=== PATIENT | female | born 1975 | race Caucasian/White ===

== ENCOUNTER → 2018-02-28 | Outpatient (REF) | payer BC | LOC: M SFHCLERA 18:42 | DX: R50.9 Fever, unspecified (principal) ==

== ENCOUNTER → 2020-01-14 | Outpatient (REF) | LOC: M LAB 12:34 | PROVIDERS: ATTEND Nurse Practitioner Adult Health | DX: Z00.00 Encounter for general adult medical examination without abnormal findings (principal) ==

== ENCOUNTER → 2021-02-13 | Outpatient (REF) | LOC: M LABSMTC 11:21 | PROVIDERS: ATTEND Pediatrics | DX: Z11.52 Encounter for screening for COVID-19 (principal) ==

== ENCOUNTER → 2021-02-16 | Outpatient (REF) | LOC: M LABSMTC 12:17 | PROVIDERS: ATTEND Pediatrics | DX: Z11.52 Encounter for screening for COVID-19 (principal) ==

== ENCOUNTER 2021-09-15 11:21 | Emergency (ER) | payer OTHER, BC ==
[~2021-09-15] VITALS: Ht 170.2 cm; Wt 56.8 kg
[2021-09-15 14:01] LABS: BASO # 0.1 10^3/uL (0.0-0.2); BASO % 0.5 % (0.0-1.0); EOS # 0.1 10^3/uL (0.0-0.5); EOS % 0.9 % (0.0-3.0); HEMATOCRIT 44.5 % (36.0-47.0); LYMPH % 23.8 % (24.0-44.0); MEAN CORPUSCULAR HEMOGLOBIN 31.6 pg (27.0-33.0); MEAN CORPUSCULAR HGB CONC 33.7 g/dl (32.0-36.5); MEAN CORPUSCULAR VOLUME 93.9 fl (80.0-96.0); MONO # 0.7 10^3/uL (0.0-0.8); MONO % 5.4 % (2.0-8.0); NEUTROPHILS # 8.8 10^3/uL (1.5-8.5); NEUTROPHILS % 69.2 % (36.0-66.0); PLATELET COUNT, AUTOMATED 194 10^3/uL (150-450); RED BLOOD COUNT 4.74 10^6/uL (4.00-5.40); WHITE BLOOD COUNT 12.6 10^3/uL (4.0-10.0)
[2021-09-15] MEDS ORDERED: BOOSTRIX/ADACEL VACCINE (DIPHTH/PERTUSS/ACELL/TETANUS) 0.5ML SYR IM ONE (14:15)
[2021-09-15 14:37] LABS: BLOOD UREA NITROGEN 11 MG/DL (7-18); CARBON DIOXIDE LEVEL 28 MEQ/L (21-32); CHLORIDE LEVEL 106 MEQ/L (98-107); CREATININE FOR GFR 0.77 MG/DL (0.55-1.30); GLOMERULAR FILTRATION RATE > 60.0 (>58); GLUCOSE, FASTING 87 MG/DL (70-100); POTASSIUM SERUM 4.4 MEQ/L (3.5-5.1); SODIUM LEVEL 139 MEQ/L (136-145)
[2021-09-15 14:38] LABS: ALT/SGPT 28 U/L (12-78); BILIRUBIN,TOTAL 0.6 MG/DL (0.2-1.0); CALCIUM LEVEL 9.4 MG/DL (8.5-10.1); TOTAL PROTEIN 7.6 GM/DL (6.4-8.2)
[2021-09-15 14:41] LABS: HEPATITIS B SURFACE ANTIBODY POSITIVE (POSITIVE)
--- OUTSIDE RECORDS SUMMARY | 2021-09-15 14:50 | CCD ---
Author Author [facility] Organization [facility] Address Unknown Phone Unavailable Care Team Providers Care Cycle Consultant Name Role Phone Jeniffer HINES MD Unavailable Unavailable MARAVEGIASJeniffer MD Unavailable Unavailable MARAVEGIASJeniffer MD Unavailable Unavailable MARAVEGIASJeniffer MD Unavailable Unavailable MARAVEGIASJeniffer MD Unavailable Unavailable MARAVEGIASJeniffer MD Unavailable Unavailable MARAVEGIASJeinffer MD Unavailable Unavailable MARAVEGIASJeniffer MD Unavailable Unavailable MARAVEGIASJeniffer MD Unavailable Unavailable MARAVEGIASJeniffer MD Unavailable Unavailable MARAVEGIASJeniffer MD Unavailable Unavailable MARAVEGIASJeniffer MD Unavailable Unavailable MARAVEGIASJeniffer MD Unavailable Unavailable MARAVEGIASJeniffer MD Unavailable Unavailable EllyJose MD Unavailable Unavailab le EllyJose MD Unavailable Unavailab le EllyJose MD Unavailable Unavailab le EllyJose MD Unavailable Unavailab le EllyJose MD Unavailable Unavailab le EllyJose MD Unavailable Unavailab le EllyJose MD Unavailable Unavailab le Elly, Jose Fermin MD Unavailable Unavailab le Elly, Jose Fermin MD Unavailable Unavailab le Elly, Jose Fermin MD Unavailable Unavailab le Elly, Jose Fermin MD Unavailable Unavailab le Elly, Jose Fermin MD Unavailable Unavailab le Elly, Jose Fermin MD Unavailable Unavailab le Elly, Jose Fermin MD Unavailable Unavailab le Elly, Jose Fermin MD Unavailable Unavailab le Elly, Jose Fermin MD Unavailable Unavailab le Elly, Jose Fermin MD Unavailable Unavailab le Elly, Jose Fermin MD Unavailable Unavailab le Elly, Jose Fermin MD Unavailable Unavailab le Elly, Jose Fermin MD Unavailable Unavailab le Elly, Jose Fermin MD Unavailable Unavailab le Elly, Jose Fermin MD Unavailable Unavailab le Elly, Jose Fermin MD Unavailable Unavailab le Elly, Jose Fermin MD Unavailable Unavailab le Elly, Jose Fermin MD Unavailable Unavailab le Elly, Jose Fermin MD Unavailable Unavailab le Elly, Jose Fermin MD Unavailable Unavailab le Elly, Jose Fermin MD Unavailable Unavailab le Elly, Jose Fermin MD Unavailable Unavailab le Elly, Jose Fermin MD Unavailable Unavailab le Elly, Jose Fermin MD Unavailable Unavailab le Elly, Jose Fermin MD Unavailable Unavailab le Elly, Jose Fermin MD Unavailable Unavailab le Elly, Jose Fermin MD Unavailable Unavailab le Elly, Jose Fermin MD Unavailable Unavailab le Elly, Jose Fermin MD Unavailable Unavailab le Elly, Jose Fermin MD Unavailable Unavailab le Elly, Jose Fermin MD Unavailable Unavailab le Elly, Jose Fermin MD Unavailable Unavailab le Elly, Jose Fermin MD Unavailable Unavailab le Elly, Jose Fermin MD Unavailable Unavailab le Elly, Jose Fermin MD Unavailable Unavailab le Elly, Jose Fermin MD Unavailable Unavailab le Elly, Jose Fermin MD Unavailable Unavailab le Elly, Jose Fermin MD Unavailable Unavailab le Elly, Jose Fermin MD Unavailable Unavailab le Elly, Jose Fermin MD Unavailable Unavailab le Elly, Jose Fermin MD Unavailable Unavailab le Elly, Jose Fermin MD Unavailable Unavailab le Elly, Jose Fermin MD Unavailable Unavailab le Elly, Jose Fermin MD Unavailable Unavailab le Elly, Jose Fermin MD Unavailable Unavailab le Elly, Jose Fermin MD Unavailable Unavailab le Elly, Jose Fermin MD Unavailable Unavailab le Elly, Jose Fermin MD Unavailable Unavailab le Elly, Jose Fermin MD Unavailable Unavailab le Elly, Jose Fermin MD Unavailable Unavailab le Elly, Jose Fermin MD Unavailable Unavailab le Elly, Jose Fermin MD Unavailable Unavailab le Elly, Jose Fermin MD Unavailable Unavailab le Elly, Jose Fermin MD Unavailable Unavailab le Elly, Jose Fermin MD Unavailable Unavailab le Elly, Jose Fermin MD Unavailable Unavailab le Elly, Jose Fermin MD Unavailable Unavailab le Elly, Jose Fermin MD Unavailable Unavailab le Elly, Jose Fermin MD Unavailable Unavailab le Elly, Jose Fermin MD Unavailable Unavailab le Elly, Jose Fermin MD Unavailable Unavailab le Elly, Jose Fermin MD Unavailable Unavailab le Elly, Jose Fermin MD Unavailable Unavailab le Elly, Jose Fermin MD Unavailable Unavailab le Elly, Jose Fermin MD Unavailable Unavailab le Elly, Jose Fermin MD Unavailable Unavailab le Elly, Jose Fermin MD Unavailable Unavailab le Elly, Jose Fermin MD Unavailable Unavailab le Elly, Jose Fermin MD Unavailable Unavailab le Elly, Jose Fermin MD Unavailable Unavailab le Elly, Jose Fermin MD Unavailable Unavailab le Elly, Jose Fermin MD Unavailable Unavailab le Elly, Jose Fermin MD Unavailable Unavailab le Elly, Jose Fermin MD Unavailable Unavailab le Elly, Jose Fermin MD Unavailable Unavailab le Elly, Jose Fermin MD Unavailable Unavailab le Elly, Jose Fermin MD Unavailable Unavailab le Elly, Jose Fermin MD Unavailable Unavailab le Elly, Jose Fermin MD Unavailable Unavailab le Elly, Jose Fermin MD Unavailable Unavailab le Elly, Jose Fermin MD Unavailable Unavailab le Elly, Jose Fermin MD Unavailable Unavailab le Elly, Jose Fermin MD Unavailable Unavailab le Elly, Jose Fermin MD Unavailable Unavailab le Elly, Jose Fermin MD Unavailable Unavailab le Elly, Jose Fermin MD Unavailable Unavailab le Elly, Jose Fermin MD Unavailable Unavailab le Elly, Jose Fermin MD Unavailable Unavailab le Elly, Jose Fermin MD Unavailable Unavailab le Elly, Jose Fermin MD Unavailable Unavailab le Elly, Joes Fermin MD Unavailable Unavailab le Elly, Jose Fermin MD Unavailable Unavailab le Elly, Jose Fermin MD Unavailable Unavailab le Elly, Jose Fermin MD Unavailable Unavailab le Elly, Jose Fermin MD Unavailable Unavailab le Galvez, Elle Ponce PA Unavailable + Galvez, Elle Ponce PA Unavailable + Galvez, Elle Ponce PA Unavailable + Galvez, Elle Ponce PA Unavailable + Galvez, Elle Ponce PA Unavailable + Galvez, Elle Ponce PA Unavailable + Galvez, Elle Ponce PA Unavailable + Galvez, Elle Ponce PA Unavailable + Galvez, Elle Ponce PA Unavailable + Galvez, Elle Ponce PA Unavailable + Galvez, R Kris PA Unavailable Elle Galvez Kris [place] Unavailable Unavailable Re-disclosure Warning The records that you are about to access may contain information from federally-assisted alcohol or drug abuse programs. If such information is present, then the following federally mandated warning applies: This information has been disclosed to you from records protected by federal confidentiality rules (42 CFR part 2). The federal rules prohibit you from making any further disclosure of this information unless further disclosure is expressly permitted by the written consent of the person to whom it pertains or as otherwise permitted by 42 CFR part 2. A general authorization for the release of medical or other information is NOT sufficient for this purpose. The Federal rules restrict any use of the information to criminally investigate or prosecute any alcohol or drug abuse patient.The records that you are about to access may contain highly sensitive health information, the redisclosure of which is protected by Article 27-F of the [facility] Public Health law. If you continue you may have access to information: Regarding HIV / AIDS; Provided by facilities licensed or operated by the [facility] Office of Mental Health; or Provided by the [facility] Office for People With Developmental Disabilities. If such information is present, then the following [facility] mandated warning applies: This information has been disclosed to you from confidential records which are protected by state law. State law prohibits you from making any further disclosure of this information without the specific written consent of the person to whom it pertains, or as otherwise permitted by law. Any unauthorized further disclosure in violation of state law may result in a fine or assisted sentence or both. A general authorization for the release of medical or other information is NOT sufficient authorization for further disc losure. Allergies and Adverse Reactions Type Description Substance Reaction Status Data Source(s ) Drug allergy Drug allergy No Known Allergies Go [facility] Family History Family Member Name Family Member Gender Family Member Status Date o f Status Description Data Source(s) Unknown Unknown Problem [facility] ([facility] Unknown Unknown Problem [facility] ([facility]) Unknown Unknown Problem [facility] ([facility]) Encounters Encounter Providers Location Date Indications Data Source(s ) Outpatient Attender: Zander Sanabria MDReferrer: Zander gibson MD 09/08/2021 08:49:24 PM EDT [facility] Recurring Patient Referrer: Zander Sanabria MD 09/08/2021 0 8:46:26 AM EDT [facility] Recurring Patient Referrer: Zander Sanabria MD 09/05/2021 0 3:51:26 PM EDT [facility] Recurring Patient Referrer: Zander Sanabria MD 09/05/2021 0 3:51:01 PM EDT [facility] Recurring Patient Referrer: Zander Sanabria MD 09/05/2021 0 3:46:58 PM EDT [facility] Emergency Attender: Kris Galvez PAAttender: Kris YORK ED-ED 08/30/2021 01:39:00 PM EDT - 08/30/2021 03:53:00 PM EDT LT ARM PAIN [facility] LT ARM PAIN Patient discharged. Outpatient CPSCAORT-LABEJN 09/15/2020 02:44:00 PM EDT [facility] Emergency Attender: CORINNA HINES MD ED-ED 1 10:06:00 AM EDT - 09/15/2020 11:10:00 AM EDT BACK PAIN VOMITING [facility] BACK PAIN VOMITING Patient discharged. Immunizations Vaccine Date Status Description Data Source(s) COVID-19 VACCINE [facility] 12/21/2020 12:00:00 AM EST completed [facility] Vaccine Series Complete: YESThis Data wa s Submitted to [facility] [employer] COVID-19 VACCINE [facility] 11/30/2020 12:00:00 AM EST completed [facility] Vaccine Series Complete: NOThis Data was Submitted to [facility] [employer] Medications Medication Brand Name Start Date Product Form Dose Route Admi nistrative Instructions Pharmacy Instructions Status Indications Reaction Description Data Source(s) Cyclobenzaprine hydrochloride 5 MG Oral Tablet CYCLOBENZAPRI NE HCL 08/30/2021 12:00:00 AM EDT tablet 20 TAKE ONE TABLET BY MOUTH TWICE A DAY TAKE ONE TABLET BY MOUTH TWICE A DAY SOLD: 08/30/2021 [facility] 4 mg 08/30/2021 12:00:00 AM EDT tablets,dose pack 21 TAKE DIRECTED TAKE DIRECTED SOLD: 08/30/2021 Kevin Bains s Insurance Providers Payer name Policy type / Coverage type Policy ID Covered libertarian ID Covered libertarian's relationship to melara Policy Melara Plan Information [employer] [place] 306/806 [id number] SP [id number] [place] 306/806 [id number] SP [id number] Blue Cross Blue Shield P [id number] SELF [id number] [place] [id number] Unemployed [id number] [place] P[place] 302/307 [id number] SP [id number] BC[employer]/[place] Commercial [id number] Self [place] P[place] 302/307 [id number] [employer] BCBS B [id number] S VYS [id number] [facility] [id number] SP [id number] Problems, Conditions, and Diagnoses Code Display Name Description Problem Type Effective Dates Data Source(s) N10 Acute pyelonephritis ACUTE PYELONEPHRITIS Diagnosis 09/15/2020 10:06:00 AM [facility] N39.0 Urinary tract infection, site not specif ied URINARY TRACT INFECTION, SITE NOT SPECIFIED Diagnosis 09/15/2020 10:06:00 AM [facility] spital Surgeries/Procedures Procedure Description Date Indications Data Source(s) URNLS DIP STICK/TABLET REAGENT AUTO MICROSCOPY URINALYSIS AU TO W/SCOPE 09/15/2020 12:00:00 AM [facility] Non-covered item or service NON-COVERED ITEM OR SERVICE 08/27 12:00:00 AM [facility] Injection, ceftriaxone sodium, per 250 mg 09/15/2020 1 2:00:00 AM [facility] THERAPEUTIC PROPHYLACTIC/DX INJECTION SUBQ/IM THER/PROPH/VINICIO G INJ SC/IM 09/15/2020 12:00:00 AM [facility] EMERGENCY DEPARTMENT VISIT HIGH/URGENT SEVERITY EMERGENCY DE PT VISIT 09/15/2020 12:00:00 AM EDT [facility] Results ID Date Data Source [id number] 09/08/2021 08:49:24 PM EDT [facility]: Temi DominguezDOB: 1975Provider: Elly, ToddCHARLES: 09/08/2021 Reason For VisitSOS Patient Intake: Temi Dominguez is here today for Left arm/elbow. Temi had her second Covid vaccine on 11/2020. Temi Dominguez is a new patient. Patient states that she has pain above her elbow and down her arm . She notes that this has been going on for 10 days with no known injury . Patient denies any injury. The patient was notified that the office visit was recorded to enhance documentation accuracy. 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 History of Present IllnessCHIEF COMPLAINTLeft elbow pain.HISTORY OF PRESENT ILLNESSMsArmand Dominguez is a 45-year-old ndolh-zlxq-fxjrqymr female who presents for an initial evaluation of her left elbow. The patient reports that her left elbow pain began suddenly on Sunday night, 08/29/2021 without injury. She says when she woke up Sunday morning, 08/30/2021, it was significantly painful. She notes she presented to the emergency room for evaluation. The patient describes pain and a pulling sensation in the lateral aspect of her elbow that radiates down to her ring and long fingers. She notes tingling in her ring and long fingers. She says initially she had pain in her entire arm. The patient agrees to pain at rest. She states that her pain is not improving. She describes a pulling sensation when bending over or sitting at her desk. She describes the pain as a toothache type pain. The patient presented to her primary care physician who gave her 5 days of steroids without relief. She denies having any neck or nerve issues in the past. She notes pain when bending her neck to the side. She mentions her pain interrupts her sleep occasionally, but she can usually find a comfortable sleeping position. She denies any recent rashes or tick bites. The patient denies a significant medical history including diabetes, pulmonary, or cardiovascular issues. She denies a history of gastrointestinal issues such as ulcers. She denies a significant past medical history. She denies any tingling in her toes. 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 Results/DataRadiographs, 2 views of the left elbow were ordered, obtained, and interpreted today, 09/08/2021, in the office for the indication of pain/dysfunction. These demonstrate no bony abnormalities. There is no fracture. There is no degenerative disease. No evidence of previous surgical intervention. AssessmentASSESSMENTAtraumatic onset left elbow pain of unclear etiology. acute.Soledad patient presents with left elbow pain that began approximately 10 days ago without injury. I reviewed with the patient her exam and x-ray findings which reveal atraumatic onset left elbow pain of unclear etiology. Her symptoms really do not fit any clear diagnosis today. We discussed her diagnosis as well as treatment options, including medicine, physical therapy, compression sleeve, and further diagnostic studies such as an MRI or nerve study. Home physical therapy exercises, anti-inflammatories, compression sleeve, and activity modification are recommended. If her symptoms persist, we may need to consider an MRI and/or nerve study. All questions were answered. The patient understands and agrees with this plan. Plan Start: Meloxicam 15 MG Oral Tablet (Mobic); TAKE 1 TABLET DAILY WITH FOOD Rx By: Zander Sanabria; Dis pense: 0 Days ; #:30 Tablet; Refill: 0;For: Left elbow pain; DEE = N; Verified Transmission to [facility]; Last Updated By: [employer]; 09/08/2021 9:27:07 AM Tobacco Use Screening; Status:Complete; Done: 08Sep2021 Perform:Not Applicable;Ordered; For:SocHx: Current every day smoker; Ordered By:Sydney Eid; X-Ray I Elbow - 2 views (XRays were ordered, obtained and interpreted today in theoffice. Indication: pain/dysfunction.); Status:Complete; Done: 08Sep2021 Perform:SOS28; Due:22Sep2021; Last Updated By:Tabby Aaron; 09/08/2021 8:58:45 AM;Ordered; For:Left elbow pain; Ordered By:Zander Sanabria;Laterality: : Left Disclaimers Scribed by Tabby East on 09/08/2021 at 09:46 AM for Zander Sanabria Signatures Electronically signed by : Tabby East MA; Sep 08 2021 9:46AM EST (Author) Electronically signed by : Zander Sanabria M.D.; Sep 08 2021 8:49PM EST Name Value Range Interpretation Code Description Data Buffy rce(s) Supporting Document(s) ID Date Data Source [id number] 09/06/2021 12:00:00 AM [facility] Name Value Range Interpretation Code Description Data Buffy rce(s) Supporting Document(s) SARS coronavirus 2 Ag NEGATIVE [facility] This lab [facility] and reported by CHURCH IVETTE TRIDELL. ID Date Data Source [id number] 08/30/2021 03:14:00 PM EDT [facility] Name Value Range Interpretation Code Description Data Buffy rce(s) Supporting Document(s) B-Type Natriuretic Peptide BNP <125 Normal (applies to non-numeric results) [facility] Results of this test should always be us ed in conjunction with the patients medical history, clinical presentation, and other findings. ID Date Data Source [id number] 08/30/2021 03:11:00 PM EDT [facility] Name Value Range Interpretation Code Description Data Buffy rce(s) Supporting Document(s) Sodium 137 mmol/L 136-145 Normal (applies to non-numeric resul ts) [facility] Potassium 3.5-5.1 Normal (applies to non-numeric resul ts) [facility] Chloride 102 mmol/L 98-107 Normal (applies to non-numeric resul ts) [facility] Carbon Dioxide CO2 21-32 Normal (applies to non-numer ic results) [facility] Anion Gap 5.0-16.0 Normal (applies to non-numeric resul ts) [facility] BUN 11 mg/dL 7-18 Normal (applies to non-numeric results) [facility] Creatinine,Serum 0.7-1.2 Normal (applies to non-numeric results) [facility] GFR >60 Normal (applies to non-numeric results) [facility] Glucose Level 82 mg/dL 60-99 Normal (applies to non-numeric re sults) [facility] Reference range is only applicable when patient is fasting Note the following drug interference: Sulfasalazine Sulfapyridine Can see falsely depressed Can see falsely elevated result with up to 17% results with up to 11% decrease in measurement increase in measurement Recommend patients be collected for this test prior to administration of either drug. Calcium 8.5-10.1 Normal (applies to non-numeric resul ts) [facility] Bilirubin,Total 0.1-1.9 Normal (applies to non-numeric results) [facility] SGOT(AST) 11 U/L 15-37 [facility] Note the following drug interference: Sulfasalazine Sulfapyridine Can see falsely depressed Can see falsely elevated result with up to 10% results with up to 10% decrease in measurement increase in measurement Recommend patients be collected for this test prior to administration of either drug. SGPT(ALT) 17 U/L 12-78 Normal (applies to non-numeric resul ts) [facility] Note the following drug interference: Sulfasalazine Sulfapyridine Can see falsely depressed Can see falsely elevated result with up to 29% results with up to 10% decrease in measurement increase in measurement Recommend patients be collected for this test prior to administration of either drug. Alkaline Phosphatase 90 U/L 38-126 Normal (applies to non-num edmundo results) [facility] can increase Alkaline Phosp le vels up to 2 times the normal adult value. Normal values for children and adolescents are 2 to 3 times the normal adult value. Total Protein 6.0-8.2 Normal (applies to non-numeric re sults) [facility] Albumin Level 3.4-5.0 Normal (applies to non-numeric re sults) [facility] ID Date Data Source [id number] 08/30/2021 03:11:00 PM EDT [facility] Name Value Range Interpretation Code Description Data Buffy rce(s) Supporting Document(s) Troponin I 0.000-0.056 Normal (applies to non-numeric resu lts) [facility] ID Date Data Source [id number] 08/30/2021 03:12:00 PM EDT [facility] Name Value Range Interpretation Code Description Data Buffy rce(s) Supporting Document(s) Lipase 117 U/L 73-393 Normal (applies to non-numeric resul ts) [facility] ID Date Data Source [id number] 08/30/2021 02:46:00 PM EDT [facility] Name Value Range Interpretation Code Description Data Buffy rce(s) Supporting Document(s) White Blood Count 3.5-10.5 Normal (applies to non-numeri c results) [facility] Red Blood Count 3.90-5.00 Normal (applies to non-numeric results) [facility] Hemoglobin 12.0-15.5 Normal (applies to non-numeric resul ts) [facility] Hematocrit 34.9-44.5 Normal (applies to non-numeric resul ts) [facility] Mean Corpuscular Volume 81.2-95.1 Normal (applies to non- numeric results) [facility] Mean Corpuscular Hgb 25.6-32.2 Normal (applies to non-num edmundo results) [facility] Mean Corpuscular Hgb Conc 32.0-36.0 Normal (applies to no n-numeric results) [facility] Red Cell Distribution Width 11.9-15.5 Normal (appli es to non-numeric results) [facility] Platelet Count 177 x10 3/uL 150-450 Normal (applies to non-numeric results) [facility] Mean Platelet Volume 9.4-12.4 Normal (applies to non-num edmundo results) [facility] Neutrophils% (Auto) 31.0-71.0 Normal (applies to non-nume pete results) [facility] Lymphocytes% (Auto) 20.0-55.0 Normal (applies to non-nume pete results) [facility] Monocytes% (Auto) 4.0-12.0 Normal (applies to non-numeri c results) [facility] Eosinophils% (Auto) 1.0-8.0 Normal (applies to non-nume pete results) [facility] Basophils% (Auto) 0.0-2.0 Normal (applies to non-numeri c results) [facility] Immature Granulocytes% (Auto) 0.0-2.0 Normal (demetris lies to non-numeric results) [facility] Neutrophils# (Auto) 1.50-6.20 Normal (applies to non-nume pete results) [facility] Lymphocytes# (Auto) 1.20-4.00 Normal (applies to non-nume pete results) [facility] Monocytes# (Auto) 0.00-0.90 Normal (applies to non-numeri c results) [facility] Eosinophils# (Auto) 0.00-0.50 Normal (applies to non-nume pete results) [facility] Basophils# (Auto) 0.00-0.20 Normal (applies to non-numeri c results) [facility] Immature Granulocytes# (Auto) 0.00-7.00 No rmal (applies to non-numeric results) [facility] ID Date Data Source [id number] 08/31/2021 07:47:[address] [facility] Imaging Services Department Imaging Report [address] [place] [address] %(RAD)RES..mtdd.print.filter("line") Name: TEMI DOMINGUEZ : 1975 Age/Sex: 45F Ordering Provider: CHELA Pro Med Rec #: [id number] Reg Status: [facility] ER Room #: Date of Service: 08/30/21 Report Number: [id number] cc:CHELA Pro; PCP None Send Report To: [id number] XRP/XR Chest Xray Portable Reason for exam: Chest pain complaint Prior examination: None available. FINDINGS: There is no evidence of acute consolidation or CHF. There is what appears to be a nipple shadow projecting over the right lung base. The heart isnot enlarged. Thee is no hilar adenopathy. IMPRESSION: NO EVIDENCE OF SIGNIFICANT ACUTE PULMONARY DISEASE. Time portable performed: 1436 Fluoroscopy time in seconds: Number of Exposures: Contrast Agent in ml: Method of Administration: REPORT SIGNATURE ON FILE Reported By: Trip Luke MD <Electronically signed by Trip Luke MD> 08/31/21 1213 Dictation Date/Time: 08/30/21 1651 Transcribed Date/Time: 08/31/21 0742 Crushing Machine Operator: [email or web address] Name Value Range Interpretation Code Description Data Buffy rce(s) Supporting Document(s) ID Date Data Source 08/16/2021 12:00:00 AM EDT [facility] Name Value Range Interpretation Code Description Data Buffy rce(s) Supporting Document(s) SARS coronavirus 2 Ag NEGATIVE [facility] This lab was ordered by [facility] and reported by [facility]. ID Date Data Source 08/04/2021 12:00:00 AM EDT [facility] Name Value Range Interpretation Code Description Data Buffy rce(s) Supporting Document(s) SARS coronavirus 2 Ag NEGATIVE [facility] This lab was ordered by [facility] and reported by [facility]. ID Date Data Source 05/05/2021 12:00:00 AM EDT [facility] Name Value Range Interpretation Code Description Data Buffy rce(s) Supporting Document(s) SARS coronavirus 2 Ag NEGATIVE [facility] This lab was ordered by [facility] and reported by [facility]. ID Date Data Source 04/26/2021 12:00:00 AM EDT [facility] Name Value Range Interpretation Code Description Data Buffy rce(s) Supporting Document(s) SARS coronavirus 2 Ag NEGATIVE [facility] This lab was ordered by [facility] and reported by [facility]. ID Date Data Source 04/21/2021 12:00:00 AM EDT [facility] Name Value Range Interpretation Code Description Data Buffy rce(s) Supporting Document(s) SARS coronavirus 2 Ag NEGATIVE [facility] This lab was ordered by [facility] and reported by [facility]. ID Date Data Source 04/18/2021 12:00:00 AM EDT [facility] Name Value Range Interpretation Code Description Data Buffy rce(s) Supporting Document(s) SARS coronavirus 2 Ag NEGATIVE [facility] and reported by [facility]. ID Date Data Source 04/11/2021 12:00:00 AM EDT [facility] Name Value Range Interpretation Code Description Data Buffy rce(s) Supporting Document(s) SARS coronavirus 2 Ag NEGATIVE [facility] lab [facility] and reported by [facility]. ID Date Data Source [id number] 04/08/2021 12:00:00 AM EDT [facility] Name Value Range Interpretation Code Description Data Buffy rce(s) Supporting Document(s) SARS-CoV2 Rapid Antigen Negative [facility] by [facility]. ID Date Data Source 04/04/2021 12:00:00 AM EDT [facility] Name Value Range Interpretation Code Description Data Buffy rce(s) Supporting Document(s) SARS coronavirus 2 Ag NEGATIVE [facility] lab [facility] and reported by [facility]. ID Date Data Source 03/31/2021 12:00:00 AM EDT [facility] Name Value Range Interpretation Code Description Data Buffy rce(s) Supporting Document(s) SARS coronavirus 2 Ag NEGATIVE [facility] lab [facility] and reported by [facility]. ID Date Data Source [id number]/28/2021 12:00:00 AM EDT [facility] Name Value Range Interpretation Code Description Data Buffy rce(s) Supporting Document(s) SARS coronavirus 2 Ag NEGATIVE [facility] This lab was [facility] and reported by [facility]. ID Date Data Source [id number] 03/24/2021 12:00:00 AM EDT [facility] Name Value Range Interpretation Code Description Data Buffy rce(s) Supporting Document(s) SARS coronavirus 2 Ag NEGATIVE [facility] This lab was ordered by [facility] and reported by [facility]. ID Date Data Source [id number] 03/21/2021 12:00:00 AM EDT [facility] Name Value Range Interpretation Code Description Data Buffy rce(s) Supporting Document(s) SARS coronavirus 2 Ag Negative [facility] This lab was ordered by [facility] and reported by [facility]. ID Date Data Source [id number]/17/2021 12:00:00 AM EDT [facility] Name Value Range Interpretation Code Description Data Buffy rce(s) Supporting Document(s) SARS coronavirus 2 Ag NEGATIVE [facility] This lab was ordered by [facility] and reported by [facility]. ID Date Data Source [id number] 03/14/2021 12:00:00 AM EDT [facility] Name Value Range Interpretation Code Description Data Buffy rce(s) Supporting Document(s) SARS coronavirus 2 Ag NEGATIVE [facility] This lab was ordered by [facility] and reported by [facility]. ID Date Data Source [id number] 02/28/2021 12:00:00 AM EDT [facility] Name Value Range Interpretation Code Description Data Buffy rce(s) Supporting Document(s) SARS coronavirus 2 Ag NEGATIVE [facility] This lab was ordered by [facility] and reported by [facility]. ID Date Data Source 02/24/2021 12:00:00 AM EDT [facility] Name Value Range Interpretation Code Description Data Buffy rce(s) Supporting Document(s) SARS coronavirus 2 Ag NEGATIVE [facility] This lab was ordered by [facility] and reported by [facility]. ID Date Data Source [id number] 02/21/2021 12:00:00 AM EDT [facility] Name Value Range Interpretation Code Description Data Buffy rce(s) Supporting Document(s) SARS coronavirus 2 Ag NEGATIVE [facility] This lab was ordered by [facility] and reported by [facility]. ID Date Data Source [id number] 02/16/2021 12:20:00 PM EDT [facility] Name Value Range Interpretation Code Description Data Buffy rce(s) Supporting Document(s) SARS coronavirus 2 RNA Not Detected [facility] This lab was ordered by [facility] and reported by [facility]. ID Date Data Source [id number] 02/13/2021 11:00:00 AM EDT [facility] Name Value Range Interpretation Code Description Data Buffy rce(s) Supporting Document(s) SARS coronavirus 2 RNA Not Detected [facility] This lab was ordered by [facility] and reported by [facility]. ID Date Data Source [id number] 02/08/2021 12:00:00 AM EDT [facility] Name Value Range Interpretation Code Description Data Buffy rce(s) Supporting Document(s) SARS-CoV-2 (COVID-19) RNA [Presence] in Respiratory specimen by SARA with probe detection Not detected [facility] This lab was ordered by [facility] and r eported by [facility]. ID Date Data Source [id number] 01/31/2021 12:23:00 PM EST [facility] Name Value Range Interpretation Code Description Data Buffy rce(s) Supporting Document(s) SARS coronavirus 2 RNA Not Detected [facility] This lab was ordered by [facility] and reported by [facility]. ID Date Data Source [id number] 01/27/2021 12:00:00 AM EST [facility] Name Value Range Interpretation Code Description Data Buffy rce(s) Supporting Document(s) SARS coronavirus 2 Ag NEGATIVE [facility] This lab was ordered by [facility] and reported by [facility]. ID Date Data Source [id number] 01/24/2021 10:00:00 AM EST [facility] Name Value Range Interpretation Code Description Data Buffy rce(s) Supporting Document(s) SARS coronavirus 2 RNA Not Detected [facility] This lab was ordered by [facility] and reported by [facility]. ID Date Data Source [id number] 01/20/2021 12:00:00 AM EST [facility] Name Value Range Interpretation Code Description Data Buffy rce(s) Supporting Document(s) SARS coronavirus 2 Ag NEGATIVE [facility] This lab was ordered by [facility] and reported by [facility]. ID Date Data Source [id number] 01/17/2021 11:43:00 AM EST [facility] Name Value Range Interpretation Code Description Data Buffy rce(s) Supporting Document(s) SARS coronavirus 2 RNA Not Detected [facility] This lab was ordered by [facility] and reported by [facility]. ID Date Data Source [id number] 01/13/2021 12:00:00 AM EST [facility] Name Value Range Interpretation Code Description Data Buffy rce(s) Supporting Document(s) SARS coronavirus 2 Ag NEGATIVE [facility] This lab was ordered by [facility] and reported by [facility]. ID Date Data Source [id number] 01/10/2021 01:00:00 PM EST [facility] Name Value Range Interpretation Code Description Data Buffy rce(s) Supporting Document(s) SARS coronavirus 2 RNA Not Detected [facility] This lab was ordered by [facility] and reported by [facility]. ID Date Data Source [id number] 01/06/2021 12:00:00 AM EST [facility] Name Value Range Interpretation Code Description Data Buffy rce(s) Supporting Document(s) SARS coronavirus 2 Ag NEGATIVE [facility] This lab was ordered by [facility] and reported by [facility]. ID Date Data Source [id number] 01/03/2021 10:30:00 AM EST [facility] Name Value Range Interpretation Code Description Data Buffy rce(s) Supporting Document(s) SARS coronavirus 2 RNA Not Detected [facility] This lab was ordered by [facility] and reported by [facility]. ID Date Data Source [id number] 12/30/2020 12:00:00 AM EST [facility] Name Value Range Interpretation Code Description Data Buffy rce(s) Supporting Document(s) SARS coronavirus 2 Ag [facility] This lab was ordered by [facility] and reported by [facility]. ID Date Data Source [id number] 12/27/2020 12:00:00 PM EST [facility] Name Value Range Interpretation Code Description Data Buffy rce(s) Supporting Document(s) SARS coronavirus 2 RNA Not Detected [facility] This lab was ordered by [facility] and reported by [facility]. ID Date Data Source [id number] 12/23/2020 12:00:00 AM EST [facility] Name Value Range Interpretation Code Description Data Buffy rce(s) Supporting Document(s) SARS coronavirus 2 Ag NEGATIVE [facility] This lab was ordered by [facility] and reported by [facility]. ID Date Data Source [id number] 12/20/2020 08:00:00 AM EST [facility] Name Value Range Interpretation Code Description Data Buffy rce(s) Supporting Document(s) SARS coronavirus 2 RNA Not Detected [facility] This lab was ordered by [facility] and reported by [facility]. ID Date Data Source [id number] 12/16/2020 12:00:00 AM EST [facility] Name Value Range Interpretation Code Description Data Buffy rce(s) Supporting Document(s) SARS coronavirus 2 Ag Negative [facility] This lab was ordered by [facility] and reported by [facility]. ID Date Data Source [id number] 12/13/2020 09:59:00 AM EST [facility] Name Value Range Interpretation Code Description Data Buffy rce(s) Supporting Document(s) SARS coronavirus 2 RNA Not Detected [facility] This lab was ordered by [facility] and reported by [facility]. ID Date Data Source [id number] 12/09/2020 12:00:00 AM EST [facility] Name Value Range Interpretation Code Description Data Buffy rce(s) Supporting Document(s) SARS-CoV2 Rapid Antigen Negative [facility] This lab was ordered by [facility] and reported by [facility]. ID Date Data Source [id number] 12/06/2020 10:57:00 AM EST [facility] Name Value Range Interpretation Code Description Data Buffy rce(s) Supporting Document(s) SARS coronavirus 2 RNA Not Detected [facility] This lab was ordered by [facility] and reported by [facility]. ID Date Data Source [id number] 12/02/2020 12:00:00 AM EST [facility] Name Value Range Interpretation Code Description Data Buffy rce(s) Supporting Document(s) SARS-CoV2 Rapid Antigen Negative [facility] This lab was ordered by [facility] and reported by [facility]. ID Date Data Source [id number] 11/22/2020 09:00:00 AM EST [facility] Name Value Range Interpretation Code Description Data Buffy rce(s) Supporting Document(s) SARS coronavirus 2 RNA [facility] This lab was ordered by [facility] and reported by [facility]. ID Date Data Source [id number] 11/15/2020 11:30:00 AM EST [facility] Name Value Range Interpretation Code Description Data Buffy rce(s) Supporting Document(s) SARS coronavirus 2 RNA [facility] This lab was ordered by [facility] and reported by [facility]. ID Date Data Source [id number] 11/08/2020 10:00:00 AM EST [facility] Name Value Range Interpretation Code Description Data Buffy rce(s) Supporting Document(s) SARS coronavirus 2 RNA [facility] This lab was ordered by [facility] and reported by [facility]. ID Date Data Source [id number] 11/01/2020 09:59:00 AM EST [facility] Name Value Range Interpretation Code Description Data Buffy rce(s) Supporting Document(s) SARS coronavirus 2 RNA [facility] This lab was ordered by [facility] and reported by [facility]. ID Date Data Source [id number] 10/29/2020 12:00:00 AM EST [facility] Name Value Range Interpretation Code Description Data Buffy rce(s) Supporting Document(s) SARS-CoV2 Rapid Antigen [facility] This lab was ordered by [facility] and reported by [facility]. ID Date Data Source [id number] 10/25/2020 01:00:00 PM EST [facility] Name Value Range Interpretation Code Description Data Buffy rce(s) Supporting Document(s) SARS coronavirus 2 RNA [facility] This lab was ordered by [facility] and reported by [facility]. ID Date Data Source [id number] 10/18/2020 12:00:00 PM EST [facility] Name Value Range Interpretation Code Description Data Buffy rce(s) Supporting Document(s) SARS coronavirus 2 RNA [facility] This lab was ordered by [facility] and reported by [facility]. ID Date Data Source [id number] 10/11/2020 08:52:00 AM EST [facility] Name Value Range Interpretation Code Description Data Buffy rce(s) Supporting Document(s) SARS coronavirus 2 RNA [facility] This lab was ordered by [facility] and reported by [facility]. ID Date Data Source [id number] 10/07/2020 11:14:00 AM EST [facility] Name Value Range Interpretation Code Description Data Buffy rce(s) Supporting Document(s) SARS coronavirus 2 RNA [facility] This lab was ordered by [facility] and reported by [facility]. ID Date Data Source [id number] 09/27/2020 09:30:00 AM EST [facility] Name Value Range Interpretation Code Description Data Buffy rce(s) Supporting Document(s) SARS coronavirus 2 RNA [facility] This lab was ordered by [facility] and reported by [facility]. ID Date Data Source [id number] 09/20/2020 12:00:00 PM EDT [facility] Name Value Range Interpretation Code Description Data Buffy rce(s) Supporting Document(s) SARS coronavirus 2 RNA [facility] This lab was ordered by [facility] and reported by [facility]. ID Date Data Source [id number] 09/16/2020 12:25:00 PM EDT [facility] Procedure Performed By: [facility] [address] [place] [address] Director: Gary Bautista MD Mixed glroia: Mixed gloria, probable contamination. Name Value Range Interpretation Code Description Data Buffy rce(s) Supporting Document(s) ID Date Data Source [id number] 09/16/2020 12:22:[address] [facility] Procedure Performed By: [facility] [address] [place] [address] Director: Gary Bautista MD Name Value Range Interpretation Code Description Data Buffy rce(s) Supporting Document(s) Urine Culture Normal (applies to non-numeric re sults) [facility] ID Date Data Source [id number] 09/15/2020 10:51:00 AM EDT [facility] Collected By: Nurse Initials: af Time Collected: 102 Collected By: Nurse Initials: af Time Collected: 102 Name Value Range Interpretation Code Description Data Buffy rce(s) Supporting Document(s) RBC,Urine None Seen [facility] WBC,Urine None Seen [facility] Casts,Urine None Seen Normal (applies to non-numeric resu lts) [facility] Squamous Cells,Urine None Seen [facility] Transitional Cells,Ur None Seen [facility] Bacteria,Urine None Seen [facility] ital Mucus,Urine None Seen [facility] ID Date Data Source [id number] [facility]: Nurse Initials: af Time Collected: 102 Collected By: Nurse Initials: af Time Collected: 102 Name Value Range Interpretation Code Description Data Buffy rce(s) Supporting Document(s) Color,Urine Colorl-Dk Y Normal (applies to non-numeric res ults) [facility] Clarity,Urine Clear Normal (applies to non-numeric re sults) [facility] Specific [place],Urine 1.005-1.030 Normal (applies to non- numeric results) [facility] pH,Urine 5.0-8.0 Normal (applies to non-numeric resul ts) [facility] Protein,Urine Negative Normal (applies to non-numeric re sults) [facility] Glucose,Urine Negative Normal (applies to non-numeric re sults) [facility] Ketones,Urine Negative Normal (applies to non-numeric re sults) [facility] Blood,Urine Negative [facility] Bilirubin,Urine Negative Normal (applies to non-numeric results) [facility] Urobilinogen,Urine 0.2-1.0 [facility] Leukocyte Esterase,Urine Negative [facility] Nitrite,Urine Negative Normal (applies to non-numeric re sults) [facility] ID Date Data Source [id number] 09/13/2020 12:00:00 PM EDT [facility] Name Value Range Interpretation Code Description Data Buffy rce(s) Supporting Document(s) SARS coronavirus 2 RNA [facility] This lab was ordered by [facility] and reported by [facility]. ID Date Data Source [id number] 09/06/2020 11:30:00 AM EDT [facility] Name Value Range Interpretation Code Description Data Buffy rce(s) Supporting Document(s) SARS coronavirus 2 RNA [facility] This lab was ordered by [facility] and reported by [facility]. ID Date Data Source [id number] 08/30/2020 12:00:00 PM EDT [facility] Name Value Range Interpretation Code Description Data Buffy rce(s) Supporting Document(s) SARS coronavirus 2 RNA [facility] This lab was ordered by [facility] and reported by [facility]. ID Date Data Source [id number] 08/23/2020 12:00:00 PM EDT [facility] Name Value Range Interpretation Code Description Data Buffy rce(s) Supporting Document(s) SARS coronavirus 2 RNA [facility] This lab was ordered by [facility] and reported by [facility]. ID Date Data Source [id number] 08/16/2020 10:00:00 AM EDT [facility] Name Value Range Interpretation Code Description Data Buffy rce(s) Supporting Document(s) SARS coronavirus 2 RNA [facility] This lab was ordered by [facility] and reported by [facility]. ID Date Data Source [id number] 08/09/2020 10:00:00 AM EDT [facility] Name Value Range Interpretation Code Description Data Buffy rce(s) Supporting Document(s) SARS coronavirus 2 RNA [facility] This lab was ordered by [facility] and reported by [facility]. ID Date Data Source [id number] 08/04/2020 07:00:00 AM EDT [facility] Name Value Range Interpretation Code Description Data Buffy rce(s) Supporting Document(s) SARS coronavirus 2 RNA [facility] This lab was ordered by [facility] and reported by [facility]. ID Date Data Source [id number] 07/26/2020 11:43:00 AM EDT [facility] Name Value Range Interpretation Code Description Data Buffy rce(s) Supporting Document(s) SARS coronavirus 2 RNA [facility] This lab was ordered by [facility] and reported by [facility]. ID Date Data Source [id number] 07/19/2020 08:43:00 AM EDT [facility] Name Value Range Interpretation Code Description Data Buffy rce(s) Supporting Document(s) SARS coronavirus 2 RNA [facility] This lab was ordered by [facility] and reported by [facility]. Procedure Social History No Information Vital Signs ID Date Data Source [id number] 08/31/2021 12:14:00 PM EDT [facility] Name Value Range Interpretation Code Description Data Source(s) Weight Measurement Method 8 8 [facility] Weight 1966 1967 [facility] pital Temperature Source 7 7 [facility] Temperature 96.8 96.8 [facility] Respiratory Rate 18 18 [facility] Pulse Assessment Method 4 4 G [facility] Pulse Rate 59 59 [facility]ital [facility] 67 67 [facility]/81 125/81 [facility] Weight Measurement Method 8 8 [facility] Weight 1966 1967 [facility] pital Temperature Source 7 7 [facility] Temperature 96.8 96.8 [facility] Respiratory Rate 18 18 [facility] Pulse Rate 63 63 [facility] pital Height 67 67 [facility] Blood Pressure 138/85 138/85 [facility] ID Date Data Source [id number] 10/05/2020 08:37:00 AM [facility] Name Value Range Interpretation Code Description Data Source(s) Weight Measurement Method 8 8 [facility] Weight 1792 1792 [facility] pital Temperature Source 7 7 [facility] Temperature 98.4 98.4 [facility] Respiratory Effort 1 1 [facility] Respiratory Rate 16 16 [facility] Pulse Assessment Method 4 4 G [facility] Pulse Rate 91 91 [facility] pital Height 67 67 [facility] pital Blood Pressure 112/80 112/80 [facility] Weight Measurement Method 8 8 [facility] Weight 1792 1792 [facility] pital Temperature Source 7 7 [facility] Temperature 98.4 98.4 [facility] Respiratory Effort 1 1 [facility] Respiratory Rate 16 16 [facility] Pulse Assessment Method 4 4 G [facility] Pulse Rate 91 91 [facility] pital Height 67 67 [facility] 104/68 104/68 [facility] Weight Measurement Method 8 8 [facility] Weight 1792 1792 [facility] pital Temperature Source 7 7 [facility] Temperature 98.4 98.4 [facility] Respiratory Effort 1 1 [facility] Respiratory Rate 16 16 [facility] Pulse Assessment Method 4 4 G [facility] Pulse Rate 91 91 [facility] pital Height 67 67 [facility] pital Blood Pressure 104/68 104/68 [facility]
[2021-09-15 14:52] VITALS: BP 119/78
[2021-09-15 14:52] LABS: HEPATITIS B SURFACE ANTIGEN NEGATIVE (NEGATIVE)
[2021-09-15 15:20] LABS: HEPATITIS C VIRUS ABY INDEX < 0.0 INDEX (<0.8)
== END 2021-09-15 14:54 | disposition home or self-care (01) ==
LOC: M ED 11:21
DX: Z77.21 Contact with and (suspected) exposure to potentially hazardous body fluids (principal); W46.0XXA Contact with hypodermic needle, initial encounter; Y92.128 Other place in nursing home as the place of occurrence of the external cause; Y99.0 Civilian activity done for income or pay; F17.210 Nicotine dependence, cigarettes, uncomplicated

== ENCOUNTER → 2021-09-15 | Outpatient (REF) | LOC: M EMP 15:52 | PROVIDERS: ATTEND Family Medicine | DX: Z11.52 Encounter for screening for COVID-19 (principal) ==

== ENCOUNTER → 2022-07-16 | Outpatient (REF) | LOC: M LABSMTC 11:19 | PROVIDERS: ATTEND Family Medicine | DX: Z11.52 Encounter for screening for COVID-19 (principal) ==

== ENCOUNTER → 2022-11-23 | Outpatient (REF) | LOC: M LABSMTC 11:35 | PROVIDERS: ATTEND Family Medicine | DX: Z11.52 Encounter for screening for COVID-19 (principal) ==

== ENCOUNTER → 2024-03-12 | Outpatient (REF) | LOC: M EMP 09:36 | PROVIDERS: ATTEND Family Medicine | DX: Z11.52 Encounter for screening for COVID-19 (principal) ==

== ENCOUNTER → 2024-03-13 | Outpatient (REF) | LOC: M EMP 08:25 | PROVIDERS: ATTEND Family Medicine | DX: Z53.9 Procedure and treatment not carried out, unspecified reason (principal) ==

== ENCOUNTER → 2025-08-27 | Outpatient (REF) | LOC: M EMP 08:37 | PROVIDERS: ATTEND Family Medicine | DX: Z11.52 Encounter for screening for COVID-19 (principal) ==

== ENCOUNTER → 2025-11-12 | Outpatient (REF) | LOC: M EMP 15:06 | PROVIDERS: ATTEND Family Medicine | DX: Z01.89 Encounter for other specified special examinations (principal) ==